=== PATIENT | female | born 1995 | race Caucasian/White ===

== ENCOUNTER → 2022-04-13 19:31 | Outpatient (CLI) | payer BC, SELFPAY ==
[2022-04-13 19:43] VITALS: BMI 32.8
== END ==
PROVIDERS: PCP Internal Medicine; Visit Provider Emergency Medicine
DX: N39.0 Urinary tract infection, site not specified (principal)
CPT/HCPCS: 96372; J0696

== ENCOUNTER → 2022-10-13 15:15 | Outpatient (CLI) | payer BC, SELFPAY ==
[2022-10-13 16:09] LABS: Microscopic, Urine URINE MICROSCOPIC (MICROSCOPIC)
[2022-10-13 17:04] LABS: Appearance,Urine CLEAR (Clear); Bilirubin,Urine Negative (Negative); Blood, Urine 2+ (Negative); Color,Urine YELLOW (Yellow); Glucose,Urine (UA) Negative (Negative); Ketones,Urine Negative (Negative); Leukocyte Esterase,Urine 2+ (Negative); Nitrate,Urine Negative (Negative); Protein,Urine Negative (Negative); Urobilinogen,Urine 0.2 EU/dl (0.2)
[2022-10-13 17:23] LABS: Bacteria,Urine 2+ /lpf; Squamous Epithelial Cell,Urine Occasional #/hpf (0-5); Yeast,Urine Occasional /lpf
== END | disposition home or self-care (01) ==
LOC: UTC.OUT 15:16 → LAB 15:18
PROVIDERS: PCP Internal Medicine; Visit Provider Nurse Practitioner Family
DX: N39.0 Urinary tract infection, site not specified (principal); B96.29 Other Escherichia coli [E. coli] as the cause of diseases classified elsewhere
CPT/HCPCS: 81001; 87086; 87088; 87186

== ENCOUNTER 2024-03-04 15:11 | Emergency (ER) | payer BC, SELFPAY ==
[2024-03-04 15:12] VITALS: BP 128/85; PULSE 89; RESP 20; TEMP 36.6; O2SAT 98; BMI 28.3
[2024-03-04 15:31] VITALS: BP 129/82; PULSE 99; O2SAT 98
[2024-03-04 15:40] LABS: Microscopic, Urine URINE MICROSCOPIC (MICROSCOPIC)
[2024-03-04 15:45] LABS: Appearance,Urine CLEAR (Clear); Bilirubin,Urine Negative (Negative); Blood, Urine TRACE-I (Negative); Color,Urine YELLOW (Yellow); Glucose,Urine (UA) Negative (Negative); Ketones,Urine Negative (Negative); Leukocyte Esterase,Urine Negative (Negative); Nitrate,Urine Negative (Negative); Protein,Urine Negative (Negative); Specific Gravity, Urine <= 1.005 (1.005-1.030); Urobilinogen,Urine 0.2 EU/dl (0.2)
[2024-03-04 15:47] LABS: Basophils # 0.1 K/mm3 (0-0.2); Basophils % 0.8 % (0.1-2.0); Eosinophils # 0.1 K/mm3 (0.0-0.4); Hematocrit 39.9 % (37.0-47.0); Hemoglobin 13.9 g/dL (12.2-16.2); Lymphocytes % 22.3 % (10-50); Mean Corpuscular HGB Conc 34.8 g/dL (31.8-35.4); Mean Corpuscular Hemoglobin 29.8 pg (27.0-31.2); Mean Corpuscular Volume 85.5 fl (81-99); Mean Platelet Volume 7.2 fl (7.4-10.4); Monocytes # 0.5 K/mm3 (0.1-1.0); Monocytes % 5.9 % (1.7-9.3); Neutrophils # 6.4 K/mm3 (1.8-7.8); Neutrophils % 70.1 % (37.0-80.0); Platelet Count 267 K/mm3 (142-424); Red Blood Count 4.66 M/mm3 (4.20-5.40); Red Cell Distribution Width 13.5 % (11.5-17.5); White Blood Count 9.1 K/mm3 (4.8-10.8)
[2024-03-04 15:53] LABS: Alanine Aminotransferase 23 U/L (12-78); Albumin Level 4.4 g/dl (3.5-5.0); Albumin/Globulin Ratio 1.8 (1.1-1.8); Alkaline Phosphatase 30 U/L (38-126); Anion Gap 13.1 mEq/L (5-15); Aspartate Amino Transferase 33 U/L (14-36); Bilirubin,Total 0.6 mg/dl (0.2-1.3); Blood Urea Nitrogen 11 mg/dl (7-17); Calcium 9.1 mg/dl (8.4-10.2); Carbon Dioxide 24 mmol/L (22.0-30.0); Chloride 108 mmol/L (98-107); Creatinine Clearance Estimated 188 mL/min (50-200); Estimated Glomerular Filt Rate 117 ml/min (>60); GFR (African American) 142 ML/MIN (>60); Globulin 2.5 g/dL (1.3-3.2); Glucose 100 mg/dl (74-100); HCG Qualitative, Serum Negative (Negative); Potassium 4.1 mmoL/L (3.5-5.1); Sodium 141 mmol/L (136-145); Total Protein,Serum 6.9 g/dl (6.3-8.2)
--- NOTE | 2024-03-04 15:54 | CT_ITS ---
PROCEDURE INFORMATION: Exam: CT Abdomen And Pelvis With Contrast Exam date and time: 03/04/2024 4:35 PM Age: 28 years old Clinical indication: Abdominal pain; Additional info: Rlq pain, pcos, iud TECHNIQUE: Imaging protocol: Computed tomography of the abdomen and pelvis with contrast. Radiation optimization: All CT scans at this facility use at least one of these dose optimization techniques: automated exposure control; mA and/or kV adjustment per patient size (includes targeted exams where dose is matched to clinical indication); or iterative reconstruction. Contrast material: ISOVUE; Contrast volume: 75 ml; Contrast route: IV; COMPARISON: US TRANSVAGINAL 03/04/2024 3:58 PM FINDINGS: Liver: Unremarkable. Gallbladder and biliary ducts: Unremarkable. Pancreas: Unremarkable. Spleen: Unremarkable. Adrenal glands: Unremarkable. Kidneys and ureters: No renal or ureteral stones. No hydronephrosis. Stomach and bowel: Unremarkable. Appendix: Appendix is visualized and is normal. Intraperitoneal space: No free fluid. No pneumoperitoneum. Vasculature: Phleboliths noted in the pelvis. Lymph nodes: No enlarged lymph nodes. Urinary bladder: Unremarkable. Reproductive: Intrauterine device in place and appears appropriately positioned. Right ovarian cyst, better evaluated on concurrent pelvic ultrasound. CT appearance of reproductive organs is otherwise unremarkable as visualized. Bones/joints: Variant transitional lumbosacral anatomy. No evidence of acute osseous abnormality. Soft tissues: Unremarkable. IMPRESSION: 1. No acute findings in the abdomen or pelvis. 2. Right ovarian cyst, better evaluated on concurrent pelvic ultrasound. Please refer to ultrasound report for details. 3. Variant transitional lumbosacral anatomy. 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
--- NOTE | 2024-03-04 15:54 | US_ITS ---
PROCEDURE INFORMATION: Exam: US Duplex Artery and Vein of the Abdominal and/or Reproductive Organs. Complete Ovaries Exam date and time: 03/04/2024 3:58 PM Age: 28 years old Clinical indication: Pelvic pain; Additional info: Pcos/ rlq >llq pain iud TECHNIQUE: Imaging protocol: Real-time duplex ultrasound scan of the arterial and venous flow with color Doppler flow and spectral waveform analysis with image documentation. Duplex exam was performed to evaluate for torsion and other vascular conditions. COMPARISON: No relevant prior studies available. FINDINGS: Right ovary/adnexa: Right ovary is normal in size for age. Color and spectral Doppler demonstrates normal ovarian arterial and venous blood flow. Left ovary/adnexa: Left ovary is normal in size for age. Color and spectral Doppler demonstrates normal ovarian arterial and venous blood flow. IMPRESSION: No evidence of ovarian torsion. PROCEDURE INFORMATION: Exam: US Pelvis, Transvaginal, Non-Obstetric Exam date and time: 03/04/2024 3:58 PM Age: 28 years old Clinical indication: Pelvic pain; Additional info: Pcos/ rlq >llq pain iud TECHNIQUE: Imaging protocol: Real-time transvaginal pelvic (non-obstetric) ultrasound with image documentation. Transvaginal imaging was used for better evaluation of the endometrium, adnexa, and/or cervix. COMPARISON: No relevant prior studies available. FINDINGS: Uterus: Uterine size and endometrial stripe are within normal limits for age. Right ovary/adnexa: Right ovary contains a dominant complex cyst with single internal septation and a few mural nodular echoes. The cyst measures 5.4 cm in greatest dimension. Left ovary/adnexa: Left ovary is normal in size for age and contains multiple physiologic follicles, noting that the number of follicles does not meet criteria for PCOS. Color Doppler demonstrates blood flow in the ovary. Urinary bladder: Unremarkable as visualized. Intraperitoneal space: No evidence of free fluid. IMPRESSION: 1. No acute findings. No evidence of PCOS. 2. Right ovary contains a complex cyst with single internal septation and a few mural nodular echoes. The cyst measures 5.4 cm in greatest dimension. Complex right ovarian cyst measuring 5.4 cm in greatest dimension. Please see comments below. COMMENTS: Current guidelines recommend 6-12 week follow-up to ensure resolution of complex ovarian cysts in premenopausal patients. If the cyst is unchanged, then hemorrhagic cyst is unlikely, and continued follow-up with either US or MR should be considered. If these studies do not confirm an endometrioma or dermoid, then surgical evaluation should be considered. (Reference: Sukhdeep et al) REFERENCES: Sukhdeep Mark, Arben SUÁREZ, Jhoan JEAN BAPTISTE, et al. Management of asymptomatic ovarian and other adnexal cysts imaged at US: Society of Radiologists in Ultrasound Consensus Conference Statement. Radiology. 2010;256(3):943-954.
--- NOTE | 2024-03-04 16:02 | HMH.EDGENADL ---
Discharge Plan Disposition Patient Disposition: Home, Self-Care Prescriptions Prescriptions: New ondansetron 4 mg tablet,disintegrating 4 mg PO Q8H PRN (Reason: nausea and vomiting) 4 Days Qty: 12 0RF ketorolac 10 mg tablet 20 mg PO Q8H PRN (Reason: pain) 1 Days Qty: 30 0RF No Action sulfamethoxazole-trimethoprim [Bactrim DS] 800-160 mg tablet 1 tab PO Q12H 7 Days Qty: 14 0RF fluconazole [Diflucan] 150 mg tablet 150 mg PO DAILY Qty: 1 0RF Rx Instructions: administer on day 1 of therapy Referrals Follow up/Referrals: Krystal Christianson, [Primary Care Provider] - See instructions Activity Restrictions/Add. Instructions Additional Instructions/Restrictions: At this time it was felt you are safe to be discharged home. If new or worsening symptoms please do not hesitate to return the emergency department. As discussed please follow-up with your proofer black and white as soon as you are able. Clinical Impressions Clinical Impression: Ovarian cyst, Pelvic pain Instructions Patient Instructions: DI for Acute Abdominal Pain Print Language Print Language: Uzbek Discharge ED Provider: Alec Ferreira General Adult HPI General Chief complaint: Abdominal Pain Stated complaint: pelvic pain Time Seen by Provider: 03/04/24 15:28 History of Present Illness HPI narrative: Patient is a 28-year-old female with past medical history of polycystic ovarian syndrome status post lysis of adhesions on the right who presents to the emergency department for evaluation of abdominal pain and pelvic pain. History is obtained by patient at bedside. She has previously had lysis of adhesions for partial torsion on the right many years ago. She had IUD placement in the summer of this year and initially had severe pelvic pain which subsided until December since then she has had weekly debilitating pelvic pain that lasts for a very short amount of time and radiates through to her rectum with associated feeling of tenesmus with spontaneous resolution. It is increased in frequency to where it is multiple times a day as of late and over the last 24 hours has become largely intractable. She is due to have her menstrual cycle in 3 to 4 days and since her IUD placement has had light periods she does have current light bleeding, does not state that she has had any discharge or significant dysuria. Her abdomen is reportedly tender. She was at [facility] and got transvaginal sound which showed ovaries in the high 3 cm range however does not have any documentation with regards to flow, there was appropriate placement of the IUD. She was referred for pelvic floor therapy and is unable to see her proofer black and white until early spring so she presents here for continued evaluation. Related Data Previous Rx's ?Medication ?Instructions ?Recorded fluconazole 150 mg tablet 150 mg PO DAILY 1 dose #1 tab 10/18/22 (Diflucan) sulfamethoxazole 800 1 tab PO Q12H 7 days #14 tabs 10/18/22 mg-trimethoprim 160 mg tablet (Bactrim DS) ketorolac 10 mg tablet 20 mg (2 x 10 mg) PO Q8H PRN pain 03/04/24 1 day #30 tabs ondansetron 4 mg disintegrating 4 mg PO Q8H PRN nausea and 03/04/24 tablet vomiting 4 days #12 tabs Allergies Allergy/AdvReac Type Severity Reaction Status Date / Time No Known Allergies Allergy Verified 04/13/22 19:43 [facility] Disclaimer: The information contained in this section may have been updated after the patient was seen, as this information can be updated by other users. Social History Smoking Status: Never smoker alcohol intake: never current occupational status: employed Travel in the last 8 weeks: None ROS Obtained: Yes Systems reviewed as appropriate & no additional complaints except as documented Physical Exam General General appearance: alert and other (Appearing in pain in bed) Head Head exam: atraumatic and normocephalic Eye Eye exam: Present PERRL and EOMI ENT ENT exam: Present mucous membranes moist Neck Neck exam: Present normal inspection Chest Chest inspection: Present normal inspection and symmetric chest wall rise Respiratory Respiratory exam: Present normal lung sounds bilaterally; Absent respiratory distress Cardiovascular Cardiovascular exam: Present regular rate and normal rhythm Abdominal Exam Abdominal exam: Present soft, tenderness (Mild diffuse, worse in the right lower quadrant) and guarding (Voluntary); Absent rebound or rigidity Extremities Exam Extremities exam: Present normal inspection Neurological Exam Neurological exam: Present alert Psychiatric Psychiatric exam: Present normal affect Skin Skin exam: Present warm and dry Medical Decision Making Medical Records Screening: Per USPSTF and CDC recommendations, given the prevalence of disease in our region, it is our hospital?s policy to screen for HIV and viral Hepatitis for all patients aged 18 and over and those with ongoing risk factors. Camilo Inquiry Pt receiving controlled substance: No Vital Signs: 03/04/24 15:12 03/04/24 15:31 03/04/24 17:01 Temperature 97.8 F Temperature Source Oral Pulse Rate 99 H 89 Pulse Rate [Right] 89 Respiratory Rate 20 Blood Pressure 129/82 118/69 Blood Pressure [Right Arm] 128/85 Blood Pressure Mean 85 Blood Pressure Mean [Right Arm] 99 Blood Pressure Source [Right Arm] Automatic Cuff 02 Sat by Pulse Oximetry 98 98 96 Oxygen Delivery Method Room Air Lab Data Lab Results 03/04/24 15:15: WBC 9.1, RBC 4.66, Hgb 13.9, Hct 39.9, MCV 85.5, MCH 29.8, MCHC 34.8, RDW 13.5, Plt Count 267, MPV 7.2 L, Neut % (Auto) 70.1, Lymph % (Auto) 22.3, [place] % (Auto) 5.9, Eos % (Auto) 1.0, Baso % (Auto) 0.8, Neut # (Auto) 6.4, Lymph # (Auto) 2.0, [place] # (Auto) 0.5, Eos # (Auto) 0.1, Baso # (Auto) 0.1, Sodium 141, Potassium 4.1, Chloride 108 H, Carbon Dioxide 24, Anion Gap 13.1, BUN 11, Creatinine 0.60, Estimated Creat Clear 188, Estimated GFR 117, Est GFR ( Amer) 142, Glucose 100, Calcium 9.1, Total Bilirubin 0.6, AST 33, ALT 23, Alkaline Phosphatase 30 L, Total Protein 6.9, Albumin 4.4, Globulin 2.5, Albumin/Globulin Ratio 1.8, Serum HCG, Qual Negative, Urine Color Yellow, Urine Appearance Clear, Urine pH 6.0, Ur Specific [place] <= 1.005, Urine Protein Negative, Urine Glucose (UA) Negative, Urine Ketones Negative, Urine Blood Trace-i, Urine Nitrate Negative, Urine Bilirubin Negative, Urine Urobilinogen 0.2, Ur Leukocyte Esterase Negative, Urine RBC Occasional, Urine WBC Occasional, Ur Squamous Epith Cells Occasional, Urine Bacteria Trace 03/04/24 15:20: Lipase 139 03/04/24 15:15 03/04/24 15:15 Orders (Tests/Meds): ED MEDICATIONS Generic Name Dose Route Start Last Admin Trade Name Freq PRN Reason Stop Dose Admin Sodium Chloride 10 ml 03/04/24 15:35 03/04/24 16:21 Sodium Chloride 0.9% 10ml Flush Syringe IV 04/03/24 15:34 10 ml NEEDED PRN Administration Maintain IV Site Discontinued Medications Generic Name Dose Route Start Last Admin Trade Name Pacoq PRN Reason Stop Dose Admin Acetaminophen 1,000 mg 03/04/24 15:53 03/04/24 16:20 Acetaminophen 1,000mg/100ml Vial IV 03/04/24 15:54 1,000 mg ONCE ONE Administration Iopamidol 75 ml 03/04/24 16:36 03/04/24 16:37 Iopamidol-370 (76%);100ml Bottle IV 03/04/24 16:37 75 ml ONCE ONE Administration Ketorolac Tromethamine 30 mg 03/04/24 16:58 03/04/24 17:05 Ketorolac 30mg/Ml Vial IV 03/04/24 16:59 30 mg ONCE ONE Administration Morphine Sulfate 4 mg 03/04/24 15:35 03/04/24 16:20 Morphine 4mg/Ml Syringe IV 03/04/24 15:36 4 mg ONCE ONE Administration Ondansetron HCl 4 mg 03/04/24 15:53 03/04/24 16:15 Ondansetron 4mg/2ml Vial IV 03/04/24 15:54 4 mg ONCE ONE Administration Sodium Chloride 10 ml 03/04/24 16:36 03/04/24 16:37 Sodium Chloride 0.9% 10ml Syr (Rad Only) IV 03/04/24 16:37 10 ml ONCE ONE Administration ORDERS Category Date Time Status CT abdomen pelvis w con Stat Cat Scan 03/04/24 15:54 Completed US transvaginal Stat Exams 03/04/24 15:54 Completed Complete Blood Count Auto Diff Stat Lab 03/04/24 15:15 Completed Comprehensive Metabolic Panel Stat Lab 03/04/24 15:15 Completed HCG Qualitative, Serum Stat Lab 03/04/24 15:15 Completed Lipase Stat Lab 03/04/24 15:20 Completed Urinalysis and Microscopic Stat Lab 03/04/24 15:15 Completed Medical Decision Narrative: In summary patient is a 28-year-old female past medical history described presents emergency department for evaluation of right lower quadrant abdominal pain in the setting of polycystic ovaries with previous lysis of adhesions, still has her appendix, IUD in place with intermittent pain since IUD placement. Patient is hemodynamically stable nontoxic-appearing upon arrival, appearing significantly uncomfortable in bed, afebrile and tender in her right lower quadrant. Differential includes IUD malposition, ruptured ovarian cyst, appendicitis, torsion, among others. Workup be conducted with hematologic labs, urinalysis, CT abdomen pelvis IV contrast, transvaginal ultrasound. Initial inventions include Tylenol, morphine, Zofran. After test is back Toradol will be given. Initial workup reviewed by me, no significant leukocytosis, no DIMITRIOS or critical electrolyte abnormalities hCG negative. Urinalysis interpreted by me and not consistent with infection. Upon repeat evaluation patient had resolving pain, Toradol will be administered. CT of the abdomen pelvis shows no acute findings, right ovarian cyst. Transvaginal ultrasound shows no evidence of current PCOS there is a complex cyst in the right ovary measuring 5.4 cm. The case was discussed with Dr. Thorne who evaluated the patient and given that she is pain-free and has good flow does not need any emergent intervention at this time. Given this patient will be discharged with Toradol, Zofran was given multiple return precautions and verbalized understanding. Critical Care Critical Care Time Critical Care Time: No
--- NOTE | 2024-03-04 16:11 | PC.NURSE ---
pt to u/s via wheelchair
[2024-03-04] MEDS: ONDANSETRON 4MG/2ML VIAL 4 MG IV (16:15)
[2024-03-04] MEDS: MORPHINE 4MG/ML SYRINGE 4 MG IV (16:20)
[2024-03-04] MEDS: ACETAMINOPHEN 1,000MG/100ML VIAL 1000 MG IV (16:20)
[2024-03-04] MEDS: SODIUM CHLORIDE 0.9% 10ML FLUSH SYRINGE 10 ML IV (16:21)
[2024-03-04 16:27] LABS: Bacteria,Urine Trace /lpf; RBC,Urine Occasional #/hpf (0-3); Squamous Epithelial Cell,Urine Occasional #/hpf (0-5); WBC,Urine Occasional #/hpf (0-3)
[2024-03-04 16:33] LABS: Lipase 139 U/L (23-300)
[2024-03-04] MEDS: IOPAMIDOL-370 (76%);100ML BOTTLE 75 ML IV (16:37)
[2024-03-04] MEDS: SODIUM CHLORIDE 0.9% 10ML SYR (RAD ONLY) 10 ML IV (16:37)
[2024-03-04 17:01] VITALS: BP 118/69; PULSE 89; O2SAT 96
[2024-03-04] MEDS: KETOROLAC 30MG/ML VIAL 30 MG IV (17:05)
[2024-03-04 18:29] VITALS: BP 116/75; PULSE 72; RESP 16; TEMP 36.7; O2SAT 98
--- NOTE | 2024-03-04 18:45 | P.CONS_ITS ---
History of Present Illness *Admission Date: 03/04/24 *Reason for visit:: Severe right lower quadrant pain, ovarian cyst, history of adhesions *History of present illness: Patient is a 28-year-old female with past medical history of polycystic ovarian syndrome status post lysis of adhesions on the right who presents to the emergency department for evaluation of abdominal pain and pelvic pain. History is obtained by patient at bedside. She has previously had lysis of adhesions for partial torsion on the right many years ago. She had IUD placement in the summer of this year and initially had severe pelvic pain which subsided until December since then she has had weekly debilitating pelvic pain that lasts for a very short amount of time and radiates through to her rectum with associated feeling of tenesmus with spontaneous resolution. It is increased in frequency to where it is multiple times a day as of late and over the last 24 hours has become largely intractable. On arrival in the emergency department she was in severe pain requiring narcotics and Toradol. She is due to have her menstrual cycle in 3 to 4 days and since her IUD placement has had light periods she does have current light bleeding, does not state that she has had any discharge or significant dysuria. Her abdomen is reportedly tender. She was at [facility] and got transvaginal sound which showed ovaries in the high 3 cm range however does not have any documentation with regards to flow, there was appropriate placement of the IUD. She was referred for pelvic floor therapy and is unable to see her director underwriter sales until early spring so she presents here for continued evaluation. [facility] Disclaimer: The information contained in this section may have been updated after the patient was seen, as this information can be updated by other users. Social History Smoking Status: Never smoker alcohol intake: never current occupational status: employed Travel in the last 8 weeks: None Have you lived/traveled outside [place] in past 30 days?: No Contact w/someone who lives/traveled outside US past 30 days?: No Exposure to someone with infectious disease in past 14 days?: No Do you have a fever (greater than 100.4 F or 38 C)?: No Have you tested positive for COVID-19: No Exposed to someone with COVID-19 in past 14 days?: No Do you have a sore throat?: No Do you have a cough?: No Do you have any weakness?: No Do you have any diarrhea?: No Are you experiencing any unusual bleeding?: No Do you have any muscle aches/pain?: No Do you have any abdominal pain?: No Are you experiencing loss of taste or smell?: No Review of Systems Review of Systems Review of systems:: pertinent systems reviewed and negative unless documented below Meds Home Medications and Allergies Home Medications ?Medication ?Instructions ?Recorded ?Confirmed ?Type fluconazole 150 mg tablet 150 mg PO DAILY 1 dose #1 tab 10/18/22 Rx (Diflucan) sulfamethoxazole 800 1 tab PO Q12H 7 days #14 tabs 10/18/22 Rx mg-trimethoprim 160 mg tablet (Bactrim DS) ketorolac 10 mg tablet 20 mg (2 x 10 mg) PO Q8H PRN pain 03/04/24 Rx 1 day #30 tabs ondansetron 4 mg disintegrating 4 mg PO Q8H PRN nausea and 03/04/24 Rx tablet vomiting 4 days #12 tabs New Prescriptions to Start Prescriptions: ketorolac Aelc Ferreira ondansetron Alec Ferreira Allergies Allergy/AdvReac Type Severity Reaction Status Date / Time No Known Allergies Allergy Verified 04/13/22 19:43 Exam (Inpt) Vital signs and Labs for Last 24 Hours: Temp Pulse Resp BP Pulse Ox O2 Del Method 98.0 F 72 16 116/75 96 Room Air 03/04/24 18:29 03/04/24 18:29 03/04/24 18:29 03/04/24 18:29 03/04/24 17:01 03/04/24 18:29 Laboratory Results - last 24 hr 03/04/24 15:15: WBC 9.1, RBC 4.66, Hgb 13.9, Hct 39.9, MCV 85.5, MCH 29.8, MCHC 34.8, RDW 13.5, Plt Count 267, MPV 7.2 L, Neut % (Auto) 70.1, Lymph % (Auto) 22.3, [place] % (Auto) 5.9, Eos % (Auto) 1.0, Baso % (Auto) 0.8, Neut # (Auto) 6.4, Lymph # (Auto) 2.0, [place] # (Auto) 0.5, Eos # (Auto) 0.1, Baso # (Auto) 0.1, Sodium 141, Potassium 4.1, Chloride 108 H, Carbon Dioxide 24, Anion Gap 13.1, BUN 11, Creatinine 0.60, Estimated Creat Clear 188, Estimated GFR 117, Est GFR ( Amer) 142, Glucose 100, Calcium 9.1, Total Bilirubin 0.6, AST 33, ALT 23, Alkaline Phosphatase 30 L, Total Protein 6.9, Albumin 4.4, Globulin 2.5, Albumin/Globulin Ratio 1.8, Serum HCG, Qual Negative, Urine Color Yellow, Urine Appearance Clear, Urine pH 6.0, Ur Specific [place] <= 1.005, Urine Protein Negative, Urine Glucose (UA) Negative, Urine Ketones Negative, Urine Blood Trace-i, Urine Nitrate Negative, Urine Bilirubin Negative, Urine Urobilinogen 0.2, Ur Leukocyte Esterase Negative, Urine RBC Occasional, Urine WBC Occasional, Ur Squamous Epith Cells Occasional, Urine Bacteria Trace 03/04/24 15:20: Lipase 139 I & O for Labs for Last 24 Hours: Intake & Output 03/02/24 03/03/24 03/04/24 03/05/24 11:59 11:59 11:59 11:59 Weight 192 lb HEENT Head: Present normocephalic ENT: Present normal exam Neck: Present normal inspection Respiratory: Present CTA bilaterally and normal respiratory effort; Absent accessory muscle use Cardiac: Present Reg Rate and Rhythm GI: Present soft and tenderness (She has some mild tenderness in the right lower quadrant.); Absent distention, guarding, rebound or rigidity Rectal (female): Present deferred Assessment and Plan *Assessment and plan (1) Pelvic pain: Status: Acute Category: Medical Code(s): R10.2 - Pelvic and perineal pain (2) Ovarian cyst: Status: Acute Qualifiers: Laterality: right Qualified Code(s): N83.201 - Unspecified ovarian cyst, right side Category: Medical Code(s): N83.209 - Unspecified ovarian cyst, unspecified side Plan She had extreme right lower quadrant pain that has now mostly resolved. She had a transvaginal ultrasound that showed a 4.8 cm right ovarian simple appearing cyst. The left ovary had a polycystic appearance. There was no fluid in the cul-de-sac. There was good flow to both ovaries and torsion was not evident. IUD was in the correct position. CT scan was negative for appendicitis or pathology. White count was normal. test was negative. At this point in time she seems to be doing better after receiving Toradol and narcotics. She is to return to the ER if she has any further episodes of severe pain. She will benefit from another ultrasound in about 6 to 8 weeks to follow- up on this right ovarian cyst. I told her that if the pain gets worse she should return to the ER and she might benefit from laparoscopic ovarian cystectomy. I suggested that she takes Toradol and a narcotic if she has any episodes of worsening pain.
== END 2024-03-04 18:31 | disposition home or self-care (01) ==
PROVIDERS: Emergency Provider Emergency Medicine; PCP Internal Medicine
DX: N83.201 Unspecified ovarian cyst, right side (principal); R10.2 Pelvic and perineal pain; R10.31 Right lower quadrant pain
CPT/HCPCS: 74177; 76830; 80053; 81001; 83690; 84703; 85025; 96374; 96375; 99285; J0131; J1885; J2270; J2405; Q9967

== ENCOUNTER 2024-03-08 14:00 | Outpatient (CLI) | payer BC, SELFPAY ==
[2024-03-08 14:36] LABS: Chloride 106 mmol/L (98-107)
[2024-03-08 14:37] LABS: Albumin Level 4.3 g/dl (3.5-5.0); Potassium 3.9 mmoL/L (3.5-5.1); Sodium 135 mmol/L (136-145)
[2024-03-08 14:39] LABS: Alanine Aminotransferase 24 U/L (12-78); Alkaline Phosphatase 40 U/L (38-126); Anion Gap 6.9 mEq/L (5-15); Aspartate Amino Transferase 27 U/L (14-36); Bilirubin,Total 0.6 mg/dl (0.2-1.3); Blood Urea Nitrogen 18 mg/dl (7-17); Carbon Dioxide 26 mmol/L (22.0-30.0); Estimated Glomerular Filt Rate 98 ml/min (>60); GFR (African American) 119 ML/MIN (>60)
[2024-03-08 14:40] LABS: Calcium 9.2 mg/dl (8.4-10.2); Globulin 2.2 g/dL (1.3-3.2); Glucose 102 mg/dl (74-100); Total Protein,Serum 6.5 g/dl (6.3-8.2)
[2024-03-08 14:58] LABS: HCG,Quantitative < 2 mIU/ml (0-5.42)
[2024-03-08 15:12] LABS: Hematocrit 37.9 % (37.0-47.0); Hemoglobin 12.8 g/dL (12.2-16.2); Lymphocytes % 23.8 % (10-50); Mean Corpuscular HGB Conc 33.8 g/dL (31.8-35.4); Mean Corpuscular Hemoglobin 29.4 pg (27.0-31.2); Mean Corpuscular Volume 87.1 fl (81-99); Mean Platelet Volume 9.1 fl (7.4-10.4); Neutrophils % 68.8 % (37.0-80.0); Platelet Count 256 K/mm3 (142-424); Red Blood Count 4.35 M/mm3 (4.20-5.40); Red Cell Distribution Width 12.4 % (11.5-17.5); White Blood Count 8.8 K/mm3 (4.8-10.8)
[2024-03-08 15:13] LABS: Basophils % 0.5 % (0.1-2.0); Eosinophils # 0.1 K/mm3 (0.0-0.4); Lymphocytes # 2.1 K/mm3 (0.7-4.5); Monocytes # 0.5 K/mm3 (0.1-1.0); Monocytes % 5.7 % (1.7-9.3); Neutrophils # 6.1 K/mm3 (1.8-7.8)
[2024-03-09 09:09] LABS: Cancer Antigen (CA) 125 6.1 U/mL (0.0-38.1)
== END 2024-03-08 23:59 | disposition home or self-care (01) ==
LOC: LAB 14:01
PROVIDERS: PCP Internal Medicine; Visit Provider Obstetrics & Gynecology
DX: N83.201 Unspecified ovarian cyst, right side (principal); N80.00 Endometriosis of the uterus, unspecified; R10.2 Pelvic and perineal pain
CPT/HCPCS: 36415; 80053; 84702; 85025; 86316; 86850

== ENCOUNTER 2024-03-19 10:35 | Day surgery (SDC) | payer BC, SELFPAY ==
[2024-03-15 12:03] VITALS: BMI 29.7
[2024-03-19] VITALS (10 sets, daily range): BP systolic 113–142; BP diastolic 71–90; PULSE 76–97; RESP 12–20; TEMP 36.1–38; O2SAT 96–98
[2024-03-19] MEDS: LACTATED RINGERS 1000ML 1,000 ML 25 ML IV (11:07)
[2024-03-19 11:09] LABS: Urine Pregnancy, HCG Qual. Negative (Negative)
--- NOTE | 2024-03-19 13:00 | P.PNANES_ITS ---
[facility] Anesthesia Record Part I Anesthesia Record I Intake, IV Amount: 1,200 Hydration: Adequate Estimated blood loss (mL): 0 Urine output (mL): 0 Blood Pressure: 140/90 SaO2: 97 Pulse Rate: 97 Airway Patency: Patent Respiratory Rate: 12 Temperature: 98.8 F Patient is:: Awake and Stable Stable to PACU at:: 13:00
[2024-03-19] MEDS: MORPHINE 2MG/ML SYRINGE 2 MG IV (13:05)
[2024-03-19] MEDS: MEPERIDINE 25MG/ML 1ML SYRINGE 25 MG IV (13:05)
--- NOTE | 2024-03-19 13:09 | EXP.ANES.CKL ---
[facility] Disclaimer: The information contained in this section may have been updated after the patient was seen, as this information can be updated by other users. Medical History GERD (gastroesophageal reflux disease) Endometriosis determined by laparoscopy Endometriosis History of PCOS Surgical History History of laparoscopy H/O knee surgery History of tonsillectomy History of wisdom tooth extraction Family History Other Family history of CVA Family history of coronary artery disease Family history of diabetes mellitus Family history of hypertension Social History (Updated 03/19/24 @ 10:59 by Jennie Barger RN) Smoking Status: Never smoker alcohol intake: never substance use type: denies use current occupational status: employed Travel in the last 8 weeks: None [facility] Anesthesia Checklist Patient Identification Patient Identification: Arm Band Structural Data Admitted From: Home Planned Operative Procedure/s: Right Ovarian Cystectomy Consent for Planned Operative Procedure(s) Verified: Yes Verified Documents: Surgical Consent and History and Physical NPO Status Verified Time NPO: 00:00 Additional verifications Anesthesia Reactions: Yes (PONV) Hx Blood Transfusions: No Blood Transfusion Reaction: No Airway Assessment Mallampati Score:: Class I C-Spine Mobility Assessed: Yes TMJ Mobility Assessed: Yes Dentition: Good Dentition Neurological Assessment Level of Consciousness: Awake, Alert and Appropriate Anesthesia Plan Anesthesia Risk discussed: Yes Anesthesia Plan: Verified ASA Class: II Anesthesia Type: General
--- NOTE | 2024-03-19 13:44 | P.OP_ITS ---
Date of procedure: 03/19/24 Pre-op Diagnosis:: 1. 6 cm complex right ovarian mass 2. History of endometriosis 3. Pelvic pain Post-op Diagnosis:: 1. 6 cm complex right ovarian mass 2. History of endometriosis 3. Pelvic pain Procedure performed:: Diagnostic laparoscopy Surgeon:: Tania Grider DO Computer System Specialist(s):: Beverly Jo DO TOUR DIRECTOR:: John Deleon Anesthesia: GETA Estimated blood loss (mL): 10 Clinical Note:: Kristine Singh is a 28-year-old G0 who presented to the emergency room and was found to have a 6 cm right ovarian mass which was complex. She has a longstanding history of ovarian cyst, endometriosis, and PCOS. She had Ova-1 screening which was benign. CA125 was 6.1. Operative findings:: 1. Bimanual examination revealed an anteverted 6-week size uterus with smooth contour without any adnexal masses. IUD strings noted to be protruding from the cervix 2. Laparoscopic exam revealed normal-appearing uterus, ovaries, fallopian tubes and liver. 3. There were adhesions noted extending from the left colon to the left pelvic sidewall. Donavan-Masters window noted. Lesions of endometriosis noted. Cyst of Morgagni noted on the left fallopian tube Operative note:: The patient was taken to the operating room where general anesthesia was obtained and noted to be adequate. SCDs were placed for thromboembolism prophylaxis and found to be working. The patient was placed in the dorsal lithotomy position using yellowfin stirrups. Timeout verified the correct patient and procedure. The patient was prepped and draped in a usual sterile fashion. A catheter was used to drain her bladder. An acorn uterine manipulator was placed and my top gloves were removed. 10mL of Lidocaine with epinepherine was injected infraumbilically and a scalpel was used to make a 5 mm infraumbilical incision with the assistance from a hemostat. The skin was tented and Optiview blunt trocar was introduced into the abdomen in the usual fashion. CO2 gas was connected with an initial pressure of 6 mmHg noted. Pneumoperitoneum was created to a pressure of 15 mmHg. The laparoscopic camera was inserted and a quick survey of the abdomen revealed grossly normal anatomy. The uterus appeared to be anteverted with a normal size shape and contour. The patient was placed in Trendelenburg. 10mLs of local anesthetic was injected and a 5mm incision was then made in the left lower quadrant with careful attention to avoid the rectus muscles and vasculature and under direct laparoscopic visualization a blunt trocar was introduced into the abdominal cavity. Findings described above noted. There were left colonic adhesions to the pelvic sidewall. Areas of endometriosis that were noted. There was blood in the cul-de-sac suspicious for previous cyst rupture. No discrete ovarian cyst appreciated. Paratubal fallopian cysts noted. Images were obtained for the medical record. Pneumoperitoneum reduced, and all ports removed. The 2 abdominal incisions were closed with 4-0 Monocryl. Dermabond was applied to each skin incision. The [employer] Seminary uterine manipulator was removed. All counts were correct x2, per nursing. The patient was extubated, stable, and transferred to the PACU. She will be discharged after meeting all DC criteria to include voiding, ambulating and tolerating PO independently. Condition: stable Disposition: same day Complications:: None
--- NOTE | 2024-03-21 15:41 | EXP.ANES.II ---
[facility] Anesthesia Record Part II Anesthesia Record Part II Discharge Time: 13:30 Destination: Surgical Day Care (OP Surgery) PACU nurse assessment reviewed?: Yes Patient Condition:: Good Anesthesia Complications:: None Swallowing reflex intact?: Yes Airway Patency: Patent Cyanosis?: No Blood Pressure: 130/82 SaO2: 97 Respiratory Rate: 18 Pulse Rate: 95 Temperature: 98.8 F Mental Status: Alert & Oriented Pain level:: 0 Nausea and/or vomitting:: None Intake, IV Amount: 0 Hydration: Adequate
[2024-03-21 15:42] VITALS: BP 130/82; PULSE 95; RESP 18; TEMP 37.1; O2SAT 97
== END 2024-03-19 14:08 | disposition home or self-care (01) ==
PROVIDERS: Visit Provider Obstetrics & Gynecology
PROC: (CPT 58925; principal; 2024-03-19 12:00)
DX: N83.201 Unspecified ovarian cyst, right side (principal); K66.1 Hemoperitoneum; R10.2 Pelvic and perineal pain
CPT/HCPCS: 49320; 81025; J1100; J1595; J1885; J2175; J2250; J2270; J2405; J2710; J3010; J7120

== ENCOUNTER 2024-08-10 12:21 | Outpatient (CLI) | payer BC, SELFPAY | END 2024-08-10 23:59 | disposition home or self-care (01) | PROVIDERS: PCP Internal Medicine; Visit Provider Nurse Practitioner | DX: N39.0 Urinary tract infection, site not specified (principal) | CPT/HCPCS: 87086 ==